=== PATIENT | male | born 1950 | race Hispanic/Latino ===

== ENCOUNTER 2017-06-12 17:10 | Emergency (ER) | payer OTHER ==
[~2017-06-12] VITALS: Ht 157.5 cm; Wt 63.0 kg
[~2017-06-12 17:10] MED LIST: HYDR-3090 PO; IBUP-1827 PO; IBUP400T22 PO
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
[2017-06-12 17:28] VITALS: BP 171/86; PULSE 78; RESP 18; O2SAT 98
[2017-06-12] MEDS ORDERED: Ondansetron 2 mg/mL 2 mL Inj ONE (17:50)
[2017-06-12] MEDS ORDERED: 0.9% Sodium Chloride 1,000 ML IV ONE (17:54)
[2017-06-12] MEDS ORDERED: Tissue Adhesive Liq (CS Supplied) TOPICAL ONE (18:00)
[2017-06-12 18:02] LABS: BASOPHILS % (AUTO) 0.5 % (0-3); EOSINOPHILS % (AUTO) 0.9 % (0-5); Mean Corpuscular Hemoglobin 29.8 pg (27.0-35.0); Mean Corpuscular Volume 87.5 fL (81-100); NEUTROPHILS % (AUTO) 41.3 % (40-74); Platelet Count 229 bil/L (150-400)
[2017-06-12 18:07] LABS: INR 1.06 ratio
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
[2017-06-12 18:13] VITALS: PULSE 79; RESP 13; O2SAT 98
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
[2017-06-12] MEDS ORDERED: TdaP Vaccine 0.5 mL Inj IM ONE (18:40)
[2017-06-12 19:03] VITALS: BP 191/84; PULSE 64; RESP 15; O2SAT 100
[2017-06-12 19:33] VITALS: BP 183/80; PULSE 64; RESP 17; O2SAT 100
== END 2017-06-12 19:34 | disposition home or self-care (01) ==
LOC: EDBD 17:10 → EDUNIT# 17:10 → SED 17:10
DX: S02.2XXA Fracture of nasal bones, initial encounter for closed fracture (principal); S00.03XA Contusion of scalp, initial encounter; S01.111A Laceration without foreign body of right eyelid and periocular area, initial encounter; S06.0X9A Concussion with loss of consciousness of unspecified duration, initial encounter; Y04.0XXA Assault by unarmed brawl or fight, initial encounter; Y93.89 Activity, other specified; Y99.8 Other external cause status; Y92.017 Garden or yard in single-family (private) house as the place of occurrence of the external cause; Z23 Encounter for immunization
CPT/HCPCS: 12001; 12011; 36415; 70450; 70486; 71010; 72125; 80053; 85014; 85018; 85025; 85610; 90471; 90715; 96361; 96374; 96375; 99285; J2270; J2405; J7030